=== PATIENT | male | born 1960 | race African-American/Black ===

== ENCOUNTER 2019-08-01 22:08 | Emergency (ER) | payer OTHER ==
[~2019-08-01] VITALS: Ht 180.3 cm; Wt 70.3 kg
--- NOTE | ~2019-08-01 | EMS ---
[facility] [address] [place] [address] EMS Patient Care Report Name: NINA PRTAT Room #: REG LIDIA Peraza#: [id number] Admission: 08/01/19 Attend Phys: Discharge: Date of : 60 Report #: [id number] THIS REPORT FOR: //name// Report Transmitted: 08/01/2019 22:08 EMS Care Summary [place], [place]/[facility] Incident [id number] @ 08/01/2019 21:41 Incident Location [address] [place] [address] 505 B Patient NINA PRATT Male, 59 Years 1960 Patient Address [address] [place] [address] [address] [place] [address] Patient History Congestive Heart Failure (CHF),Hypertension (HTN),Stroke/CVA,Dialysis, Patient Allergies Penicillin allergy, Patient Medications Heparin, Hydralazine, Carvedilol, Furosemide, Atorvastatin, Amlodipine, Chief Complaint Right elbow pain/swelling Disposition Transported No Lights/[place] Dispatch Reason Sick Person Transported To [facility] Narrative 59 y/o male with pain/swelling to right elbow. On arrival found pt in IN room. Pt stated he has been having pain and swelling [address] [address] EMS Patient Care Report Name: NINA PRATT Room #: REG Karmen#: [id number] Admission: 08/01/19 Attend Phys: Discharge: Date of : 60 Report #: [id number] to his right elbow and wanted to be taken to the hospital. EMS monitored pt/VS en route to [facility] ED. Transferred care of pt to [facility] ED RN without incident. Initial Vitals @21:59P: 70,BP: 168/99,CO: 7,SpO2: 97, @21:54P: 75,R: 20,BP: 175/101,Pain: 8/10,GCS: 15,CO: 5,SpO2: 97,Revised Trauma: 12, Assessments @21:50MENTAL:No Abnormalities,SKIN:No Abnormalities,HEENT:Head/Face: No Abnormalities,Eyes: No Abnormalities,Neck/Airway: No Abnormalities,LUNG SOUNDS:General: No Abnormalities,Left Upper: No Abnormalities,Right Upper: No Abnormalities,Left Lower: No Abnormalities,Right Lower: No Abnormalities,ABDOMEN:General: No Abnormalities,Left Upper: No Abnormalities,Right Upper: No Abnormalities,Left Lower: No Abnormalities,Right Lower: No Abnormalities,PELVIS//GI:No Abnormalities,EXTREMITIES:Right Arm: Other,Capillary Refill: Left Upper: < 2 Sec,Left Arm: No Abnormalities,Left Leg: No Abnormalities,Right Leg: No Abnormalities,PULSE:Radial: 2+ Normal,NEURO:No Abnormalities, Impression Extremity Pain Procedures @21:50ALS AssessmentResponse: UnchangedSucceeded Timeline 21:39,Call Received 21:39,Dispatch Notified 21:41,Dispatched 21:41,En Route 21:47,On Scene 21:50,At Patient 21:50,ALS Assessment,Response: UnchangedSucceeded, 21:54,BP: 175/101 M,PULSE: 75,RR: 20 R,SPO2: 97 Ox,ETCO2: ,BG: ,PAIN: 8,GCS: 15, 21:55,Depart Scene 21:59,BP: 168/99 M,PULSE: 70,RR: R,SPO2: 97 Ox,ETCO2: ,BG: ,PAIN: ,GCS: , 22:12,At Destination 22:28,Call Closed Disclaimer v1.1 Copyright 2020 [employer] This EMS Care Summary contains data elements from the applicable legal record [address] [address] EMS Patient Care Report Name: NINA PRATT Room #: REG Karmen#: [id number] Admission: 08/01/19 Attend Phys: Discharge: Date of : 60 Report #: [id number] (which may be displayed differently). It is designed to provide pertinent information for the following purposes: continuity of care, clinical quality, and state data reporting. The complete legal record is available to ED staff and administrators of the receiving hospital in [employer]'s Patient Tracker. All data is provided "as is."
[2019-08-01 23:32] VITALS: BP 155/100
== END 2019-08-01 23:39 | disposition home or self-care (01) ==
LOC: ER 22:08
DX: M70.21 Olecranon bursitis, right elbow (principal); Z88.0 Allergy status to penicillin

== ENCOUNTER 2020-12-15 09:16 | Emergency (ER) | payer OTHER ==
[~2020-12-15] VITALS: Ht 185.4 cm; Wt 81.7 kg
--- NOTE | ~2020-12-15 | EMS ---
[address] [address] EMS Patient Care Report Name: NINA PRATT Room #: REG LIDIA Peraza#: [id number] Admission: 12/15/20 Attend Phys: Discharge: Date of : 60 Report #: [id number] THIS REPORT FOR: //name// Report Transmitted: 12/15/2020 12:01 EMS Care Summary [place], [place]/[facility] Incident [id number] @ 12/15/2020 08:46 Incident Location [address] [place] [address] 507 Patient NINA PRATT Male, 60 Years 1960 Patient Address [address] [place] [address] Patient History Cardiac Arrest,Chronic Obstructive Pulmonary Disease (COPD),Dementia,Hypertension (HTN),Smoking,Stroke/CVA,Hyperlipidemia,Gastro-Esophageal Reflux Disease (GERD),Pneumonia,Depression,Dialysis,Hyperkalemia,Chronic Kidney Disease,Myocardial Infarction (AR), Patient Allergies Penicillin allergy, Patient Medications Carvedilol, Doxycycline, Hydralazine, Atorvastatin, Sertraline, Levetiracetam, Hydrocodone, Midodrine, None Reported, Pantoprazole, Chief Complaint Missed dialysis appointment Disposition Transported No Lights/[place] Dispatch Reason Chest Pain (Non-Traumatic) Transported To [address] [address] EMS Patient Care Report Name: NINA PRATT Room #: REG [facility]#: [id number] Admission: 12/15/20 Attend Phys: Discharge: Date of : 60 Report #: [id number] Narrative Arrived to meet P28 on scene with the patient. Patient's niece was on scene as well and stated that EMS had been called because the patient had not received his dialysis in approximately 6 days. Patient stated he had the [facility] staff call because of chest pain. Patient had recently been evaluated for chest pain that was found by the hospital he was evaluated at to be related to the cardiac arrest. No fci staff was present to the time of patient contact to give any form of report on the patient's current condition. Patient had a bandage on his right forearm from an injury at some unknown time. Patient described his chest pain as centrally located, and painful to palpation. Patient denied the pain was radiating. Patient denied any soa, n/v, or diarrhea. Patient on 3lpm O2 via NC baseline. Vital signs, 3 and 12 lead EKGs obtained. Patient transported and transferred to receiving facility without change in patient condition. Initial Vitals @09:01P: 74,SpO2: 81, @09:04P: 76,CO: 19,SpO2: 96,AR Suspected: false @09:02P: 69,R: 16,BP: 157/100,Pain: 6/10,GCS: 14,SpO2: 88,Revised Trauma: 12, @09:00P: 72,R: 16,BP: 151/89,Pain: 6/10,GCS: 14,Glucose: 84,SpO2: 84,Revised Trauma: 12, Assessments @08:55MENTAL:Confused,Person Oriented,Place Oriented,SKIN:HEENT:Head/Face: No Abnormalities,Neck/Airway: No Abnormalities,LUNG SOUNDS:ABDOMEN:PELVIS//GI:No Abnormalities,EXTREMITIES:Right Arm: Other,Left Arm: No Abnormalities,Left Leg: No Abnormalities,Right Leg: No Abnormalities,PULSE:NEURO:No Abnormalities, Impression Chest Pain, Other (Non-Cardiac) Procedures @09:0412-Lead ECGResponse: UnchangedSucceeded@08:55ALS AssessmentResponse: UnchangedSucceeded@09:033-Lead ECGResponse: UnchangedSucceeded@08:57Oxygen FlowRate: 3 Device: Nasal Cannula (NC) Response: UnchangedSucceeded Timeline 08:44,Call Received 08:44,Dispatch Notified 08:46,Dispatched 08:47,En Route 08:53,On Scene 08:55,At Patient 08:55,ALS Assessment,Response: UnchangedSucceeded, 08:57,Oxygen FlowRate: 3 Device: Nasal Cannula (NC) Response: [facility] [address] [place] [address] EMS Patient Care Report Name: NINA PRATT Room #: JOSE Peraza#: [id number] Admission: 12/15/20 Attend Phys: Discharge: Date of : 60 Report #: [id number] [facility],BP: 151/89 M,PULSE: 72,RR: 16 R,SPO2: 84 Ox,ETCO2: ,B,PAIN: 6,GCS: 14, 09:01,BP: / M,PULSE: 74,RR: R,SPO2: 81 Ox,ETCO2: ,BG: ,PAIN: ,GCS: , 09:02,BP: 157/100 M,PULSE: 69,RR: 16 R,SPO2: 88 Ox,ETCO2: ,BG: ,PAIN: 6,GCS: 14, 09:03,3-Lead ECG,Response: UnchangedSucceeded, 09:04,12-Lead ECG,Response: UnchangedSucceeded, 09:04,BP: / M,PULSE: 76,RR: R,SPO2: 96 Ox,ETCO2: ,BG: ,PAIN: ,GCS: , 09:05,Depart Scene 09:14,At Destination 09:24,Call Closed Disclaimer v1.1 Copyright 2020 [employer] This EMS Care Summary contains data elements from the applicable legal record (which may be displayed differently). It is designed to provide pertinent information for the following purposes: continuity of care, clinical quality, and state data reporting. The complete legal record is available to ED staff and administrators of the receiving hospital in [employer]'s Patient Tracker. All data is provided "as is."
[2020-12-15 09:53] LABS: CALCIUM 8.4 mg/dL (8.5-10.1); CREATININE 9.8 mg/dL (0.7-1.3); POTASSIUM 5.7 mmol/L (3.5-5.1)
[2020-12-15 10:13] LABS: HEMOGLOBIN 6.6 gm/dL (14.0-18.0); RDW 15.6 % (10.5-14.5)
[2020-12-15 10:15] LABS: ABSOLUTE NEUTROPHILS 6.5 thou/uL (1.4-8.2); BASOPHILS 0.6 % (0.0-2.0); EOSINOPHILS 0.9 % (0.0-3.0); HEMATOCRIT 20.7 % (42.0-52.0); LYMPHOCYTES 7.8 % (24.0-44.0); MCH 28.6 pg (26.0-34.0); MCV 89.6 fL (80.0-100.0); MONOCYTES 7.7 % (1.0-8.0); PLATELET COUNT 179 thou/uL (150-400); RBC 2.31 mil/uL (4.50-6.00); WBC 7.9 thou/uL (4.0-11.0)
--- NOTE | 2020-12-15 12:10 | NUR ---
Pt is was brought to the ER d/t kathe and not able to get dialysis at [facility] as he is missing a 30 day lab draw for hep B panel. Repair Service Dispatcher spoke with Edilma at [facility] and she notes the retirement was suppose to have drawn it yesterday as she was not able to treat him on Sunday. They did not have it drawn. ER staff notified and requested lab be drawn prior to dc back to the retirement after dialysis here. Cm to fax resulted lab work so [facility] can get him on the schedule. and phone [phone]. Flow sheets from todays treatment will need to be sent with the pt as well.
[2020-12-15] MEDS ORDERED: KEFLEX250 MG PO (12:54)
--- NOTE | 2020-12-15 13:39 | EKG ---
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: : 1960 Requested By: Jama Denson Order Number: [id number] MD: Marlon Bardales Measurements Intervals [place] Rate: 72 P: 41 MS: 114 QRS: 43 QRSD: 99 T: 106 QT: 408 QTc: 447 Interpretive Statements Sinus rhythm Borderline short MS interval Borderline repolarization abnormality Baseline wander in lead(s) V5 No previous ECG available for comparison Electronically Signed On 12-15-2020 13:39:14 CDT by Marlon Bardales [email or web address] <ELECTRONICALLY SIGNED> By: Marlon Bardales MD, [facility] 12/15/20 1339 0917 6 Marlon Bardales MD, [facility] /EPI
[2020-12-15 16:23] VITALS: BP 157/98
== END 2020-12-15 16:24 ==
LOC: ER 09:16
PROVIDERS: Emergency Medicine
DX: N19 Unspecified kidney failure (principal); Z20.822 Contact with and (suspected) exposure to COVID-19; R07.89 Other chest pain; D64.9 Anemia, unspecified; Z88.0 Allergy status to penicillin

== ENCOUNTER → 2020-12-17 | Emergency (ER) | payer OTHER ==
[~2020-12-17] MED LIST: KEFLEX250 MG PO
[2020-12-17 17:23] LABS: BASOPHILS 1.3 % (0.0-2.0); EOSINOPHILS 0.6 % (0.0-3.0); HEMATOCRIT 21.1 % (42.0-52.0); LYMPHOCYTES 8.6 % (24.0-44.0); MCH 29.5 pg (26.0-34.0); MCHC 33.3 g/dL (28.0-37.0); MCV 88.4 fL (80.0-100.0); MONOCYTES 6.8 % (1.0-8.0); PLATELET COUNT 236 thou/uL (150-400); POLYS 82.7 % (36.0-66.0); RBC 2.39 mil/uL (4.50-6.00); WBC 8.4 thou/uL (4.0-11.0)
== END ==
LOC: ER 17:05
PROVIDERS: Physician Assistant
DX: R06.02 Shortness of breath (principal); Z53.21 Procedure and treatment not carried out due to patient leaving prior to being seen by health care provider; Z88.0 Allergy status to penicillin

== ENCOUNTER 2021-02-02 00:02 | Inpatient (IN) | payer OTHER ==
[~2021-02-02] VITALS: Ht 180.3 cm; Wt 77.6 kg
--- NOTE | ~2021-02-02 | EMS ---
[facility] [address] [place] [address] EMS Patient Care Report Name: NINA PRATT Room #: 455-P [facility] IN M.R.#: [id number] Admission: 02/02/21 Attend Phys: Chace Sandoval MD Discharge: 02/04/21 Date of : 60 Report #: [id number] THIS REPORT FOR: //name// Report Transmitted: 02/07/2021 15:09 EMS Care Summary [place], [place]/[facility] Incident [id number] @ 02/01/2021 23:28 Incident Location [address] [place] [address] Patient NINA PRATT Male, 60 Years 1960 Patient Address [address] [place] [address] Patient History Cardiac Arrest,Congestive Heart Failure (CHF),Chronic Obstructive Pulmonary Disease (COPD),Dementia,Hypertension (HTN),Smoking,Stroke/CVA,Hyperlipidemia,Gastro-Esophageal Reflux Disease (GERD),Pneumonia,Depression,Dialysis,Hyperkalemia,Chronic Kidney Disease,Myocardial Infarction (MA), Patient Allergies Penicillin allergy, Patient Medications Acetaminophen, Finasteride, Atorvastatin, Keflex, Carvedilol, Sertraline, Doxycycline, Gabapentin, Amlodipine, Levetiracetam, Hydrocodone, Pantoprazole, Midodrine, Keppra, Hydralazine, [place], Clopidogrel, Chief Complaint SOB Disposition Transported No Lights/[place] Dispatch Reason Breathing Problem Transported To [facility] [address] [place] [address] EMS Patient Care Report Name: NINA PRATT Room #: 455-P DIS IN M.R.#: [id number] Admission: 02/02/21 Attend Phys: Chace Sandoval MD Discharge: 02/04/21 Date of : 60 Report #: [id number] [facility] Narrative pt found wheeling around the [place] in his wheelchair. he called 911 himself stating he has not felt well since yesterday morning, which is why he skipped dialysis. pt c/o pain to chest from hx of multiple cracked ribs. pt states it hurts to take a deep breath. pt is unhappy with the care he receives at [facility] and calls frequently for transport. he req eval at [facility] tonight.. pt to cot, / 3L per norm, VS transport w/o change. Initial Vitals @23:46P: 76,R: 20,BP: 198/92,Pain: 4/10,GCS: 15,SpO2: 97,Revised Trauma: 12, Assessments @23:36MENTAL:No Abnormalities,SKIN:No Abnormalities,HEENT:Head/Face: No Abnormalities,LUNG SOUNDS:ABDOMEN:PELVIS//GI:EXTREMITIES:Left Arm: Other,PULSE:NEURO:Other, Impression Shortness of breath Procedures @23:36 ALS Assessment Response: Unchanged @23:45 3-Lead ECG Response: Unchanged @23:41 Stretcher Response: Unchanged @23:48 Oxygen FlowRate: 3 Device: Nasal Cannula (NC) Response: Unchanged Timeline 23:26,Call Received 23:26,Dispatch Notified 23:28,Dispatched 23:29,En Route 23:32,On Scene 23:36,At Patient 23:36,ALS Assessment,Response: Unchanged 23:41,Stretcher,Response: Unchanged 23:45,3-Lead ECG,Response: Unchanged 23:46,BP: 198/92 M,PULSE: 76,RR: 20 R,SPO2: 97 Ox,ETCO2: ,BG: ,PAIN: 4,GCS: 15, 23:48,Depart Scene 23:48,Oxygen FlowRate: 3 Device: Nasal Cannula (NC) Response: Unchanged 00:04,At Destination 00:12,Call Closed Disclaimer v1.1 Copyright 2020 [employer] [address] [address] EMS Patient Care Report Name: NINA PRATT Shannan Room #: 455-P DIS IN [facility]#: [id number] Admission: 02/02/21 Attend Phys: Chace Sandoval MD Discharge: 02/04/21 Date of : 60 Report #: [id number] This EMS Care Summary contains data elements from the applicable legal record (which may be displayed differently). It is designed to provide pertinent information for the following purposes: continuity of care, clinical quality, and state data reporting. The complete legal record is available to ED staff and administrators of the receiving hospital in [facility]'s Patient Tracker. All data is provided "as is."
[~2021-02-02 00:02] MED LIST changes: +ALBUTEROL2.5 MG/31 INH; +BAYER CHEWABLE81 MG PO; +CALAMINE LOTIO177 M1 TOP; +CARVEDILOL25 MG PO; +CATAPRES-TTS 31 EAC1 TRANSDERM; +CEFUROXIME500 MG PO; +CHILDREN'S ASPI81 MG PO; +CHOLECALCIFEROL PO; +CLONIDINE HCL0.1 MG PO; +CLONIDINE HCL0.3 M3 PO; +CLONIDINE PATCH TRANSDERM; +CLOPIDOGREL75 MG PO; +COLACE100 MG PO; +DORYX MPC120 MG PO; +EC-NAPROSYN375 MG PO; +EPOGEN20000 UNI2; +FERROUS SULFATE PO; +FLOMAX0.4 MG PO; +FUROSEMIDE 40 M40 MG PO; +GAS RELIEF80 MG PO; +GLYCOLAX119 GM PO; +HYDRALAZINE 5050 MG PO; +KEPPRA 500 MG500 MG PO; +KEPPRA XR500 MG PO; +LEVOFLOXACIN250 MG PO; +LEVOFLOXACIN500 MG PO; +LIPITOR40 MG PO; +LIPITOR80 MG PO; +LISINOPRIL5 MG PO; +LOPERAMIDE2 MG PO; +MUCINEX600 MG PO; +NEPHRO-VITE RX1 TA1 PO; +NEURONTIN100 MG PO; +NORVASC 2.5 MG2.5 M1 PO; +NORVASC5 MG PO; +PERCOCET 5-3251 EACH PO; +PROSCAR 5MG TABL5 M1 PO; +PROTONIX40 M2 PO; +RENVELA800 MG PO; +SERTRALINE HCL100 MG PO; +TRAMADOL 50 MG50 MG PO; +TUMS PO; +TYLENOL PO; +TYLENOL325 M1 PO; +ULTRAM 50MG TAB50 MG PO; +VOLTAREN100 GM TOP; +ZITHROMAX500 MG PO; +ZOFRAN 4 MG ORAL4 MG PO; +ZOFRAN4 MG PO; +ZOLOFT50 M1 PO; +[UNRECOGNIZED DRUG - OTHER] TOP
[2021-02-02 00:25] VITALS: BP 161/110
[2021-02-02 01:30] LABS: ABSOLUTE NEUTROPHILS 6.3 thou/uL (1.4-8.2); BASOPHILS 1.3 % (0.0-2.0); HEMATOCRIT 27.2 % (42.0-52.0); HEMOGLOBIN 8.4 gm/dL (14.0-18.0); LYMPHOCYTES 14.3 % (24.0-44.0); MCH 28.7 pg (26.0-34.0); MCHC 30.9 g/dL (28.0-37.0); MCV 93.1 fL (80.0-100.0); MONOCYTES 9.5 % (1.0-8.0); PLATELET COUNT 145 thou/uL (150-400); POLYS 72.9 % (36.0-66.0); RBC 2.92 mil/uL (4.50-6.00); RDW 19.1 % (10.5-14.5); WBC 8.7 thou/uL (4.0-11.0)
[2021-02-02 01:33] LABS: CALCIUM 8.9 mg/dL (8.5-10.1); CREATININE 7.2 mg/dL (0.7-1.3); POTASSIUM 5.3 mmol/L (3.5-5.1)
[2021-02-02 01:42] LABS: ALBUMIN 2.5 g/dL (3.4-5.0); TOTAL BILIRUBIN 0.4 mg/dL (0.2-1.0); TOTAL PROTEIN 7.2 g/dL (6.4-8.2)
--- NOTE | 2021-02-02 04:46 | NUR ---
LUNCH BOX AND APPLE JUICE PROVIDED TO PT.
[2021-02-02 06:13] VITALS: BP 178/112
[2021-02-02 06:31] VITALS: BP 178/112
[2021-02-02 07:00] VITALS: BP 139/99
--- NOTE | 2021-02-02 08:53 | NUR ---
PT UP AND DOWN IN ROOM. PT GAIT IS NOT STEADY, PT USES [facility] TO AMBULATE AND BED. PT HAS NUMBEROUS DEMANDS THIS AM. PT WANTING BED MADE DUE TO IJ CAME OUT OF NECK AND BLOOD WAS ON HIS SHEETS. PT COMPLAINING OF FEELING COLD AND ALSO NAUSEATED. PT WANTING WATER TO DRINK, NO DIET IS ORDERED. CALLED DR. ANDREA TO GET PO FORM OF ZOFRAN AND ALSO TO ORDER A DIET. PT HAS GRAFT FOR DIALYSIS TO LEFT ARM. PT STATED HE GETS DIALYSIS HERE. PT HAS COBAN AROUND WAIST DUE TO HE HAS RIB PAIN. PT TOOK MEDS WITH WATER. PT DENIES ANY PAIN. PT ASKING ALSO FOR A URINAL THIS AM.
[2021-02-02 11:00] VITALS: BP 154/111
--- NOTE | 2021-02-02 11:07 | NUR ---
PT WAS SITTING UP IN THE CHAIR IN ROOM. ENFORMED PT THAT DIALYSIS NURSE WILL BE IN AROUND NOON. PT STATED OK.
--- NOTE | 2021-02-02 11:24 | 2DMMODE ---
[facility] [place] [address] 2 D/M-MODE ECHOCARDIOGRAM Name: NINA PRATT Room #: 455-P ADM IN .R.#: [id number] Admission: 02/02/21 Attend Phys: Chace Sandoval MD Discharge: Date of : 60 Report #: [id number] THIS REPORT FOR: cc: Gerardo Orozco MD, Srinath MD Santiago, Patrick MD [facility] ~ ADDENDUM APPROVED REPORT Study performed: 02/02/2021 10:16:10 EXAM: Comprehensive 2D, Doppler, and color-flow Echocardiogram Patient Location: In-Patient Room #: 455 Status: routine BSA: 1.96 HR: 69 bpm BP: 178/112 mmHg Rhythm: NSR Other Information Study Quality: Good Risk Factors: Cardiac Risk Factors: HTN, Hyperlipidemia, DM Indications CAD 2D Dimensions RVDd: 47.15 mm IVSd: 16.22 (7-11mm) LVOT Diam: 25.36 (18-24mm) LVDd: 49.33 mm PWd: 12.27 (7-11mm) LVDs: 31.49 (25-40mm) Left Atrium: 44.62 (27-40mm) Aortic Root: 38.50 mm LV Single Plane 4CH: 72.37 % Tricuspid Valve TR Peak Prashant.: 3.65 m/s TR Peak Gr.: 53.32 mmHg Left Ventricle The left ventricle is normal size. There is normal LV segmental wall [facility] [address] [place] [address] 2 D/M-MODE ECHOCARDIOGRAM Name: NINA PRATT Room #: 455-P ADM IN ..#: [id number] Admission: 02/02/21 Attend Phys: Chace Sandoval, Discharge: Date of : 60 Report #: [id number] motion. Moderate concentric left ventricular hypertrophy. The left ventricular systolic function is normal. The left ventricular ejection fraction is within the normal range. LVEF is 60%. Grade I - abnormal relaxation pattern. Right Ventricle The right ventricle is normal size. There is normal right ventricular wall thickness. The right ventricular systolic function is normal. Atria Left atrium is mildly dilated. Right atrium is moderately to severely dilated. Aortic Valve The Aortic valve is sclerotic but has adequate excursion. There is no aortic valvular stenosis. Mitral Valve Mitral annular calcification anteriorly. No evidence of mitral valve stenosis. Tricuspid Valve The tricuspid valve is normal in structure. There is no tricuspid valve stenosis. Mild to moderate tricuspid regurgitation. Estimated PAP 65-70 Pulmonic Valve The pulmonary valve is normal in structure. Great Vessels There is mild aortic root dilation. The inferior vena cava is dilated with a decrease in inspiratory collapse. Pericardium There is no pericardial effusion. Critical Notification Critical Value: No <Conclusion> Normal left ventricle size with moderate concentric hypertrophy Ejection fraction 60% Grade 1 diastolic dysfunction Normal right ventricle size/function [facility] [address] [place] [address] 2 D/M-MODE ECHOCARDIOGRAM Name: NINA PRATT Room #: 455-P ADM IN M.R.#: [id number] Admission: 02/02/21 Attend Phys: Chace Sandoval, Discharge: Date of : 60 Report #: [id number] Left atrium mildly dilated Aortic valve mildly sclerotic without stenosis Mild mitral annular calcification Mild to moderate tricuspid valve insufficiency Severe pulmonary hypertension PA pressure estimated 65-70 mmHg No pericardial effusion Normal aortic root size <ELECTRONICALLY SIGNED> By: Marlon Bardales MD, FACC 02/02/21 1124 23 23 Marlon Bardales MD, FACC /INF
--- NOTE | 2021-02-02 12:00 | NUR ---
DIALYSIS NURSE HERE TO START. STATED TO PT THAT HE IS GETTING 4 HRS TODAY, PT UPSET AND STATED HE USUALLY GETS 3 HRS. DUE TO HOLIDAY PT WILL NEED 4 HR RUN. PT WANTING TO EAT LUNCH FIRST.
--- NOTE | 2021-02-02 13:16 | NUR ---
PT GETTING PLAVIX AT THIS TIME AND GETTING DIALYSIS. PT HAS PERIODS OF SLEEPING. PT APPEARS COMFORTABLE.
--- NOTE | 2021-02-02 13:41 | EKG ---
[place] [address] [email or web address] [place] [address] ELECTROCARDIOGRAM REPORT Name: TERENCENINA Campbell Room #: 455-P ADM IN M.R.#: [id number] Admission: 02/02/21 Attend Phys: Chace Sandoval MD Discharge: Date of : 60 Report #: [id number] [facility] Test Date: 2021-02-02 Test Time: 07:59:31 Pat Name: NINA PRATT Department: Room: 455 P Gender: M Superintendent Maintenance: BELL : 1960 Requested By: Maxine Mack Order Number: [id number] MD: Marlon Bardales Measurements Intervals [place] Rate: 66 P: 146 [place]: 154 QRS: 149 QRSD: 101 T: -31 QT: 424 QTc: 445 Interpretive Statements Right and left arm electrode reversal, interpretation assumes no reversal Sinus or ectopic atrial rhythm Lead(s) II were not used for morphology analysis Compared to ECG 12/17/2020 17:23:11 Ectopic atrial rhythm now present Possible ischemia now present Sinus rhythm no longer present Electronically Signed On 02-02-2021 13:41:42 IGNITION MECHANIC by Marlon Bardales [email or web address] <ELECTRONICALLY SIGNED> By: Marlon Bardales MD, FACC 02/02/21 1341 0759 0759 Marlon Bardales MD, [facility] /EPI
--- NOTE | 2021-02-02 13:41 | EKG ---
[address] [place] [address] ELECTROCARDIOGRAM REPORT Name: TERENCENINA Campbell Room #: 455-P ADM IN M.R.#: [id number] Admission: 02/02/21 Attend Phys: Chace Sandoval MD Discharge: Date of : 60 Report #: [id number] [facility] ED Test Date: 2021-02-02 Test Time: 01:32:20 Pat Name: NINA PRATT Department: Room: [facility] Gender: M Insulator Tester: : 1960 Requested By: Kevin Ricci Order Number: [id number] MD: Marlon Bardales Measurements Intervals [place] Rate: 70 P: 89 MA: 137 QRS: 63 QRSD: 75 T: 204 QT: 396 QTc: 428 Interpretive Statements Sinus rhythm Probable left atrial enlargement Nonspecific T abnormalities, lateral leads Compared to ECG 12/17/2020 17:23:11 T-wave abnormality now present Electronically Signed On 02-02-2021 13:41:04 [employer] by Marlon Bardaels [email or web address] <ELECTRONICALLY SIGNED> By: Marlon Bardales MD, [facility] 02/02/21 1341 0132 013 Marlon Bardales MD, FACC /EPI
--- NOTE | 2021-02-02 15:21 | NUR ---
CALLED DR. DELACRUZ OFFICE DUE TO ELEVATED TROPONIN LEVEL. THEY WILL PAGE THE
--- NOTE | 2021-02-02 15:30 | NUR ---
DR. DAS CALLED FOR PT AND STATED HE WAS NOT GOING TO DO ANYTHING AGGRESSIVE AT THIS TIME. PT TROP HIGH SENSITIVITY WAS ELEVATED ALSO 0050 THIS AM.
--- NOTE | 2021-02-02 16:06 | NUR ---
PT ADMITTED RELATED TO MISSED DIALYSIS. CM REVIEWED CHART AND SPOKE WITH CARE TEAM. CM ATTEMTPED TO VISIT WITH PT THIS DAY BUT HE WAS ONM DIALYSIS AND SLEEPING. CM CALLED [facility] WHERE PT DOES DIALYSIS AND THEY INDICATED THAT PT IS MWF 11:30 CHAIR TIME AND HAD DIALYSIS THIS PAST SUNDAY AND HAD FINISHED HI FULL RUN. CM NOTIFIED CARE TEAM OF THIS. CM ATTEMPTED PC TO [facility] AND [facility] IN ADMISSIONS AND DIANE PEGUERO HAD LEFT FOR THE DAY. DARRICK CALLED PT'S SISTER ANNE MARIE AND SHE CONFIRMED THAT PT RESIDES AT [facility] AND THAT HE IS MWF 11:30 CHAIR TIME AND STATED THAT PT IS CONFUSED AND GETTING HIS DAYS AND WHAT'S HAPPENING TO HIM MIXED UP. SHE INDICATED PLAN IS FOR TO TO RETURN TO [facility] ONCE MEDICALLY STABLE. CONTACT LADAN AT TO FACILITATE PT'S RETURN FAX ORDERS TO FACILITY AT AND TO [facility] AT .
--- NOTE | 2021-02-02 16:32 | NUR ---
PT ALMOST FINISHED WITH DIALYSIS AND WANTING TO GET SOME MILK. PT HAS FOUL LANGUAGE TO DIALYSIS NURSE WHEN SHE WAS ADJUSTING BP CUFF, HE STATED DON'T FUCKING TOUCH ME.
--- NOTE | 2021-02-02 18:01 | NUR ---
PT FINISHED WITH DIALYSIS AND SITTING ON SIDE OF BED. PT COMPLAINS OF PAIN TO HEAD, ADM TYLENOL 325MG 2 TABS PO FOR PAIN. PT GETTING READY TO EAT DINNER. PT LOOKING FOR HOUSE SHOES, FOUND UNDER THE BED.
[2021-02-02 19:48] VITALS: BP 147/87
[2021-02-03 06:29] LABS: CALCIUM 8.4 mg/dL (8.5-10.1)
[2021-02-03 06:46] LABS: CREATININE 4.7 mg/dL (0.7-1.3)
--- NOTE | 2021-02-03 07:24 | NUR ---
ASSSUMED CARE OF PT AT 1900. PT ASSESSED TO BE AOX2-3 HERE FOR DIALYSIS. PT RESTED IN ROOM THROUGHOUT THE NIGHT WITH NO COMPLAINTS, VSS. WILL LOOK FORWARD TO TRANSFER BACK TO FACILITY IN AM.
[2021-02-03 07:50] VITALS: BP 204/132
[2021-02-03 11:18] VITALS: BP 142/74
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
[2021-02-03 15:55] VITALS: BP 186/99
[2021-02-03 21:15] VITALS: BP 184/107
[2021-02-04 04:33] VITALS: BP 179/103
--- NOTE | 2021-02-04 05:45 | NUR ---
ASSUMED CARE OF PT AT 1900. PT CONTINUES TO BE AOX4 60M PRESENTING D/T MISSED DIALYSIS AND HTN. PT RESTED MOST OF THE NIGHT IN ROOM. PT BLOOD PRESSURE CONTINUES TO BE EXTREMELY ELEVATED, SCHEDULED ORAL HYDRALAZINE GIVEN BUT DID NOT EFFECTIVELY REDUCE BP. IN MORNING HOURS, PT COMPLAINED OF INCREASING RIB PAIN, TYLENOL GIVEN WITH LITTLE EFFECT. CALLED WASHER ENGINEER MARIANO WHO ORDERED 1X 50MG ULTRAM. ASSESSED PT FURTHER AND FOUND BELLY HAD BECOME INCREASINGLY DISTENDED AND FIRM, MAINLY RLQ. NOTIFIED HOUSE SUP AND WASHER ENGINEER. OBTAINED NEW R FOREARM IV FOR IV HYDRALAZINE AND WILL GET XRAY KUB IN AM PER WASHER ENGINEER. WILL CONTINUE TO MONITOR, PT RESTING IN ROOM NOW.
[2021-02-04 07:44] VITALS: BP 165/177
[2021-02-04] MEDS ORDERED: CEFDINIR300 MG PO (13:25)
--- NOTE | 2021-02-04 13:45 | NUR ---
PT REFUSED KUB THIS MORNING DR. ARTEAGA. NNO GIVEN.
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
[2021-02-04 16:59] VITALS: BP 149/89
== END 2021-02-04 17:19 | DRG 291 ==
LOC: ER 00:02 → EROBS 02:25 → 4W 02:25
PROVIDERS: Emergency Medicine; Nurse Practitioner Family; ADMIT Internal Medicine; ATTEND Internal Medicine
PROC: 5A1D70Z Performance of Urinary Filtration, Intermittent, Less than 6 Hours Per Day (ICD-10-PCS; principal; 2021-02-04)
DX: I13.2 Hypertensive heart and chronic kidney disease with heart failure and with stage 5 chronic kidney disease, or end stage renal disease (principal); J96.21 Acute and chronic respiratory failure with hypoxia; N18.6 End stage renal disease; I50.33 Acute on chronic diastolic (congestive) heart failure; I69.354 Hemiplegia and hemiparesis following cerebral infarction affecting left non-dominant side; E87.5 Hyperkalemia; R77.8 Other specified abnormalities of plasma proteins; D63.8 Anemia in other chronic diseases classified elsewhere; E87.70 Fluid overload, unspecified; Z20.822 Contact with and (suspected) exposure to COVID-19; E78.5 Hyperlipidemia, unspecified; J44.9 Chronic obstructive pulmonary disease, unspecified; I25.10 Atherosclerotic heart disease of native coronary artery without angina pectoris; F32.9 Major depressive disorder, single episode, unspecified; K21.9 Gastro-esophageal reflux disease without esophagitis; N40.0 Benign prostatic hyperplasia without lower urinary tract symptoms; I16.0 Hypertensive urgency; G40.909 Epilepsy, unspecified, not intractable, without status epilepticus; Z99.2 Dependence on renal dialysis; I25.2 Old myocardial infarction; Z88.0 Allergy status to penicillin; Z86.718 Personal history of other venous thrombosis and embolism; Z71.6 Tobacco abuse counseling; Z91.14 Patient's other noncompliance with medication regimen; Z91.15 Patient's noncompliance with renal dialysis
CPT/HCPCS: 10045; 32100

== ENCOUNTER 2021-02-08 01:51 | Emergency (ER) | payer OTHER ==
[~2021-02-08] VITALS: Ht 180.3 cm; Wt 77.6 kg
--- NOTE | ~2021-02-08 | EMS ---
[place] [address] EMS Patient Care Report Name: NINA PRATT Room #: REG LIDIA Peraza#: [id number] Admission: 02/08/21 Attend Phys: Discharge: Date of : 60 Report #: [id number] THIS REPORT FOR: //name// Report Transmitted: 02/08/2021 02:35 EMS Care Summary [place], [place] Incident [id number] @ 02/08/2021 01:20 Incident Location [address] [place], [place] [address] Patient NINA PRATT Male, 60 Years 1960 Patient Address [address] [place] [address] Patient History Cardiac Arrest,Congestive Heart Failure (CHF),Chronic Obstructive Pulmonary Disease (COPD),Dementia,Hypertension (HTN),Smoking,Stroke/CVA,Hyperlipidemia,Gastro-Esophageal Reflux Disease (GERD),Pneumonia,Depression,Dialysis,Hyperkalemia,Chronic Kidney Disease,Myocardial Infarction ([place]), Patient Allergies Penicillin allergy, Patient Medications Levetiracetam, Amlodipine, Carvedilol, Hydralazine, Sertraline, Acetaminophen, Atorvastatin, Midodrine, Hydrocodone, Pantoprazole, Finasteride, Keflex, Gabapentin, Keppra, [place], Doxycycline, Clopidogrel, Chief Complaint non cardiac CP Disposition Transported No Lights/[place] Dispatch Reason Chest Pain (Non-Traumatic) [place] [address] EMS Patient Care Report Name: NINA PRATT Room #: REG [facility].#: [id number] Admission: 02/08/21 Attend Phys: Discharge: Date of : 60 Report #: [id number] [facility] Narrative pt has chronic pain from fx ribs he got as a med resuscitation at the hospital several weeks ago. pt called for CP/ribcage pain tonight. he is found lying in bed NAD. he got pain meds an hr ago but he states they have not helped and he wound like to go to [facility] "because last time I went, they gave my oxy and tylenol and that really helped". pt to cot, VS, /. pt states he is supposed to be on 3L but always takes it off at NH. 02 sat improved w/ admin. transport to pt [facility], [facility] w/o incident. report to staff rm 4 Initial Vitals @01:37SpO2: 98, @01:35P: 67,R: 20,BP: 204/111,Pain: 4/10,GCS: 15,SpO2: 91,Revised Trauma: 12, Assessments @:27MENTAL:No Abnormalities,SKIN:No Abnormalities,HEENT:Head/Face: No Abnormalities,LUNG SOUNDS:ABDOMEN:PELVIS//GI:EXTREMITIES:Left Arm: Other,PULSE:NEURO:No Abnormalities, Impression Chest Pain, Other (Non-Cardiac) Procedures @01:27 ALS Assessment Response: Unchanged @01:30 Stretcher Response: Unchanged @01:34 3-Lead ECG Response: Unchanged @01:35 Oxygen FlowRate: 3 Device: Nasal Cannula (NC) Response: Improved Timeline 01:18,Call Received 01:18,Dispatch Notified 01:20,Dispatched 01:23,En Route 01:26,On Scene 01:27,At Patient 01:27,ALS Assessment,Response: Unchanged 01:30,Stretcher,Response: Unchanged 01:34,3-Lead ECG,Response: Unchanged 01:35,Oxygen FlowRate: 3 Device: Nasal Cannula (NC) Response: Improved 01:35,BP: 204/111 M,PULSE: 67,RR: 20 R,SPO2: 91 Ox,ETCO2: ,BG: ,PAIN: 4,GCS: 15, 01:36,Depart Scene 01:37,BP: / M,PULSE: ,RR: R,SPO2: 98 Ox,ETCO2: ,BG: ,PAIN: ,GCS: , 01:46,At Destination [facility] [address] [place] [address] EMS Patient Care Report Name: NINA PRATT Shannan Room #: REG Karmen#: [id number] Admission: 02/08/21 Attend Phys: Discharge: Date of : 60 Report #: [id number] 02:01,Call Closed Disclaimer v1.1 Copyright 2020 [employer] This EMS Care Summary contains data elements from the applicable legal record (which may be displayed differently). It is designed to provide pertinent information for the following purposes: continuity of care, clinical quality, and state data reporting. The complete legal record is available to ED staff and administrators of the receiving hospital in ES's Patient Tracker. All data is provided "as is."
[~2021-02-08 01:51] MED LIST changes: +CEFDINIR300 MG PO
[2021-02-08 02:24] LABS: ABSOLUTE NEUTROPHILS 5.5 thou/uL (1.4-8.2); BASOPHILS 1.1 % (0.0-2.0); HEMATOCRIT 29.4 % (42.0-52.0); MCH 28.7 pg (26.0-34.0); MCHC 30.7 g/dL (28.0-37.0); MCV 93.3 fL (80.0-100.0); MONOCYTES 8.4 % (1.0-8.0); PLATELET COUNT 125 thou/uL (150-400); POLYS 73.5 % (36.0-66.0); RBC 3.15 mil/uL (4.50-6.00); RDW 18.2 % (10.5-14.5); WBC 7.5 thou/uL (4.0-11.0)
[2021-02-08 03:01] LABS: CALCIUM 8.6 mg/dL (8.5-10.1); CREATININE 7.4 mg/dL (0.7-1.3); POTASSIUM 5.6 mmol/L (3.5-5.1)
[2021-02-08 03:13] LABS: ALBUMIN 2.7 g/dL (3.4-5.0); TOTAL BILIRUBIN 0.3 mg/dL (0.2-1.0)
[2021-02-08 04:28] VITALS: BP 190/115
--- NOTE | 2021-02-08 07:18 | EKG ---
[place] [address] 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 : 1960 Requested By: Kevin Ricci Order Number: [id number] MD: Marlon Bardales Measurements Intervals [place] Rate: 66 P: 46 NC: 139 QRS: 69 QRSD: 72 T: QT: 433 QTc: 454 Interpretive Statements Sinus rhythm Nonspecific T abnormalities, lateral leads Compared to ECG 02/02/2021 07:59:31 T-wave abnormality now present Ectopic atrial rhythm no longer present Electronically Signed On 02-08-2021 7:18:05 ESTIMATING ENGINEER by Marlon Bardales [email or web address] <ELECTRONICALLY SIGNED> By: Marlon Bardales MD, [facility] 02/08/21717 0217 6 Marlon Bardales MD, FACC /EPI
== END 2021-02-08 05:15 | disposition home or self-care (01) ==
LOC: ER 01:51
PROVIDERS: Emergency Medicine
DX: R07.89 Other chest pain (principal); I12.0 Hypertensive chronic kidney disease with stage 5 chronic kidney disease or end stage renal disease; E11.22 Type 2 diabetes mellitus with diabetic chronic kidney disease; N18.6 End stage renal disease; Z99.2 Dependence on renal dialysis; E78.5 Hyperlipidemia, unspecified; J44.9 Chronic obstructive pulmonary disease, unspecified; I25.10 Atherosclerotic heart disease of native coronary artery without angina pectoris; F32.9 Major depressive disorder, single episode, unspecified; K21.9 Gastro-esophageal reflux disease without esophagitis; F19.20 Other psychoactive substance dependence, uncomplicated; F17.210 Nicotine dependence, cigarettes, uncomplicated; Z98.890 Other specified postprocedural states; Z86.73 Personal history of transient ischemic attack (TIA), and cerebral infarction without residual deficits; Z79.891 Long term (current) use of opiate analgesic; Z79.1 Long term (current) use of non-steroidal anti-inflammatories (NSAID); Z79.899 Other long term (current) drug therapy; Z88.0 Allergy status to penicillin

== ENCOUNTER 2021-02-16 22:30 | Emergency (ER) | payer OTHER ==
[~2021-02-16] VITALS: Ht 180.3 cm; Wt 77.6 kg
--- NOTE | ~2021-02-16 | EMS ---
[address] [address] EMS Patient Care Report Name: NINA PRATT Room #: REG LIDIA Peraza#: [id number] Admission: 02/16/21 Attend Phys: Discharge: Date of : 60 Report #: [id number] THIS REPORT FOR: //name// Report Transmitted: 02/16/2021 22:11 EMS Care Summary [place], [place]/[facility] Incident [id number] @ 02/16/2021 22:09 Incident Location [address] [place] [address] Patient NINA PRATT Male, 60 Years 1960 Patient Address [address] [place] [address] Patient History Cardiac Arrest,Congestive Heart Failure (CHF),Chronic Obstructive Pulmonary Disease (COPD),Dementia,Hypertension (HTN),Smoking,Stroke/CVA,Hyperlipidemia,Gastro-Esophageal Reflux Disease (GERD),Pneumonia,Depression,Dialysis,Hyperkalemia,Chronic Kidney Disease,Myocardial Infarction ([place]), Patient Allergies Penicillin allergy, Patient Medications Finasteride, Gabapentin, Pantoprazole, Clopidogrel, Acetaminophen, [place], Sertraline, Hydrocodone, Amlodipine, Carvedilol, Levetiracetam, Keflex, Doxycycline, Atorvastatin, Keppra, Midodrine, Hydralazine, Chief Complaint non cardiac CP Disposition Transported No Lights/[place] Dispatch Reason Breathing Problem Transported To [address] [address] EMS Patient Care Report Name: NINA PRATT Room #: REG [facility]#: [id number] Admission: 02/16/21 Attend Phys: Discharge: Date of : 60 Report #: [id number] [facility] Narrative pt found seated in wheelchair covered w/ blankets. he is a&o. he c/o chills and runny nose all day today. he also cont to c/o non cardiac CP from cracked ribs that happened several weeks ago. he has been transferred multiple times for pain control. pt denies missing any dialysis appts. pt to cot, transport w/o change. pt to triage, report to RN Initial Vitals @22:19R: 100,BP: 224/130,Pain: 6/10,GCS: 15,Temp: 98.2F,SpO2: 93,Revised Trauma: 11, Assessments @22:18MENTAL:No Abnormalities,SKIN:No Abnormalities,HEENT:Head/Face: Other,LUNG SOUNDS:ABDOMEN:PELVIS//GI:EXTREMITIES:Left Arm: Other,PULSE:NEURO:Other, Impression Chest Pain, Other (Non-Cardiac) Procedures @22:18 ALS Assessment Response: Unchanged @22:20 Stretcher Response: Unchanged Timeline 22:07,Call Received 22:07,Dispatch Notified 22:09,Dispatched 22:10,En Route 22:16,On Scene 22:18,At Patient 22:18,ALS Assessment,Response: Unchanged 22:19,BP: 224/130 M,PULSE: ,RR: 100 R,SPO2: 93 Ox,ETCO2: ,BG: ,PAIN: 6,GCS: 15, 22:20,Stretcher,Response: Unchanged 22:22,Depart Scene 22:28,At Destination 22:49,Call Closed Disclaimer v1.1 Copyright 2020 [employer] This EMS Care Summary contains data elements from the applicable legal record (which may be displayed differently). It is designed to provide pertinent information for the following purposes: continuity of care, clinical quality, and state data reporting. The complete legal record is available to ED staff and administrators of the receiving hospital in [facility]'s Patient Tracker. All data [facility] [address] [place] [address] EMS Patient Care Report Name: NINA PRATT Room #: REG LIDIA Peraza#: [id number] Admission: 02/16/21 Attend Phys: Discharge: Date of : 60 Report #: [id number] is provided "as is."
[2021-02-17 00:12] LABS: BASOPHILS 1.7 % (0.0-2.0); EOSINOPHILS 2.6 % (0.0-3.0); HEMATOCRIT 33.1 % (42.0-52.0); HEMOGLOBIN 10.2 gm/dL (14.0-18.0); LYMPHOCYTES 14.4 % (24.0-44.0); MCH 28.7 pg (26.0-34.0); MCHC 30.7 g/dL (28.0-37.0); MCV 93.6 fL (80.0-100.0); MONOCYTES 7.2 % (1.0-8.0); PLATELET COUNT 123 thou/uL (150-400); POLYS 74.1 % (36.0-66.0); RBC 3.54 mil/uL (4.50-6.00); RDW 18.1 % (10.5-14.5); WBC 8.1 thou/uL (4.0-11.0)
[2021-02-17 00:15] LABS: CREATININE 7.1 mg/dL (0.7-1.3)
[2021-02-17 00:26] LABS: ALBUMIN 2.8 g/dL (3.4-5.0); TOTAL BILIRUBIN 0.5 mg/dL (0.2-1.0); TOTAL PROTEIN 7.6 g/dL (6.4-8.2)
[2021-02-17] MEDS ORDERED: AZITHROMYCIN 2250 MG PO (01:31)
[2021-02-17 02:55] VITALS: BP 197/117
--- NOTE | 2021-02-17 08:51 | EKG ---
[address] [address] [place] [address] ELECTROCARDIOGRAM REPORT Name: NINA PRATT [facility] [id number] Admission: 02/16/21 Attend Phys: Discharge: 02/17/21 Date of : 60 Report #: [id number] [facility] ED Test Date: 2021-02-16 Test Time: 23:12:17 Pat Name: NINA PRATT Department: Room: Gender: Cloak Room Attendant: THADDEUS : 1960 Requested By: Travis Bynum Order Number: [id number] MD: Eduardo Dorsey Measurements Intervals [place] Rate: 69 P: 52 MA: 142 QRS: 53 QRSD: 67 T: QT: 435 QTc: 466 Interpretive Statements Sinus rhythm Poor R wave progression Nonspecific T wave abnormality Compared to ECG 02/08/2021 02:17:34 No significant change was found Electronically Signed On 02-17-2021 8:51:15 BIODIESEL ENGINE SPECIALIST by Eduardo Dorsey [email or web address] <ELECTRONICALLY SIGNED> By: Eduardo Dorsey MD, [facility] 02/17/21 0851 [id number] 2312 Eduardo Dorsey MD, FACC /EPI
== END 2021-02-17 02:56 | disposition home or self-care (01) ==
LOC: ER 22:30
PROVIDERS: Emergency Medicine
DX: I12.0 Hypertensive chronic kidney disease with stage 5 chronic kidney disease or end stage renal disease (principal); Z20.822 Contact with and (suspected) exposure to COVID-19; N18.6 End stage renal disease; J20.9 Acute bronchitis, unspecified; K21.9 Gastro-esophageal reflux disease without esophagitis; F32.9 Major depressive disorder, single episode, unspecified; F17.200 Nicotine dependence, unspecified, uncomplicated; F10.20 Alcohol dependence, uncomplicated; I42.9 Cardiomyopathy, unspecified; I25.10 Atherosclerotic heart disease of native coronary artery without angina pectoris; J44.9 Chronic obstructive pulmonary disease, unspecified; E78.5 Hyperlipidemia, unspecified; F17.210 Nicotine dependence, cigarettes, uncomplicated; Z98.890 Other specified postprocedural states; Z79.891 Long term (current) use of opiate analgesic; Z79.1 Long term (current) use of non-steroidal anti-inflammatories (NSAID); Z79.899 Other long term (current) drug therapy; Z88.0 Allergy status to penicillin

== ENCOUNTER 2021-03-21 07:53 | Emergency (ER) | payer OTHER ==
[~2021-03-21] VITALS: Ht 180.3 cm; Wt 73.9 kg
--- NOTE | ~2021-03-21 | EMS ---
[facility] [address] [place] [address] EMS Patient Care Report Name: NINA PRATT Room #: DEP LIDIA Peraza#: [id number] Admission: 03/21/21 Attend Phys: Discharge: 03/21/21 Date of : 60 Report #: [id number] THIS REPORT FOR: //name// Report Transmitted: 03/25/2021 07:21 EMS Care Summary [place], [place]/[facility] Incident [id number] @ 03/21/2021 07:11 Incident Location [address] [place] [address] Patient NINA PRATT Male, 61 Years 1960 Patient Address [address] [place] [address] [address] [place] [address] Patient History Cardiac Arrest,Congestive Heart Failure (CHF),Chronic Obstructive Pulmonary Disease (COPD),Dementia,Hypertension (HTN),ST Elevation (STEMI) Myocardial Infarction,Smoking,Stroke/CVA,Hyperlipidemia,Gastro-Esophageal Reflux Disease (GERD),End Stage Renal Disease (ESRD),Pneumonia,Depression,Anemia,Dialysis,Hyperkalemia,Chronic Kidney Disease,Respiratory Failure,Myocardial Infarction ([place]), Patient Allergies Penicillin allergy, Patient Medications Acetaminophen, Keflex, Polyethlene Glycol, Hydralazine, Gabapentin, Atorvastatin, Lisinopril, [place], Cholecalciferol, Voltaren, [place], Furosemide, Clopidogrel, Pantoprazole, Doxycycline, Hydrocodone, Levetiracetam, Tamsulosin, Amlodipine, Keppra, Ferrous Sulfate, Folic acid, Aspirin, Finasteride, Midodrine, Sertraline, Clonidine, Chief Complaint SOB Disposition Transported No Lights/[place] Dispatch Reason [facility] [address] [place] [address] EMS Patient Care Report Name: NINA PRATT Room #: DEP M.Sandrita.#: [id number] Admission: 03/21/21 Attend Phys: Discharge: 03/21/21 Date of : 60 Report #: [id number] Breathing Problem Transported To [facility] Narrative Called for SOB. Upon arrival, pt was scheduled for dialysis but staff was concerned about a possible new Covid status and he was SOB. He last dialyzed on the Sunday before. He was Covid negative on the Sunday, but there had been an outbreak in [place]. He was moved to the EMS cot and loaded into the ambulance w/o incident. Vitals obtained x 2. Attempt IV w/o success. Duo Neb given with O2. En route: cont to monitor vitals. RR to the ER. Vitals repeated. Arrived: pt taken to ER and moved to their bed w/o incident. Pt care & report to ER staff. Initial Vitals @07:33P: 87,SpO2: 99, @07:27P: 84,R: 18,BP: 165/129,Pain: 0/10,GCS: 15,CO: 0,SpO2: 100,Revised Trauma: 12, @07:35P: 83,R: 18,BP: 178/97,Pain: 0/10,GCS: 15,Glucose: 93,SpO2: 100,Revised Trauma: 12, @07:37P: 87,R: 18,BP: 169/103,Pain: 0/10,GCS: 15,SpO2: 98,Revised Trauma: 12,SC Suspected: false @07:23P: 87,R: 16,BP: 176/115,Pain: 0/10,GCS: 15,CO: 7,SpO2: 97,Revised Trauma: 12, @07:35P: 88,R: 16,BP: 176/100,Pain: 0/10,GCS: 15,CO: 0,SpO2: 100,Revised Trauma: 12, Assessments @07:18MENTAL:Event Oriented,Place Oriented,Person Oriented,Time Oriented,SKIN:HEENT:LUNG SOUNDS:ABDOMEN:PELVIS//GI:EXTREMITIES:Left Arm: Other,Right Arm: No Abnormalities,Left Leg: No Abnormalities,Right Leg: No Abnormalities,PULSE:Radial: 2+ Normal,NEURO:No Abnormalities, Impression Acute Respiratory Distress (Dyspnea) Procedures @07:56 IV Therapy - Saline Lock cc (18 ga) Site: Hand-Right Response: UnchangedFailed @07:56 IV Therapy - Saline Lock cc (18 ga) Site: Hand-Right Response: UnchangedFailed @07:18 ALS Assessment Response: UnchangedSucceeded @07:20 Stretcher Response: Unchanged @08:03 Albuterol - 2.5 Milligrams (mg) - Nebulized Response: Improved @08:04 Atrovent - 0.5 Milligrams (mg) - Nebulized Response: Improved [address] [address] EMS Patient Care Report Name: NINA PRATT Room #: DEP Karmen#: [id number] Admission: 03/21/21 Attend Phys: Discharge: 03/21/21 Date of : 60 Report #: [id number] @08:03 Albuterol - 2.5 Milligrams (mg) - Nebulized Response: Improved Timeline 07:10,Call Received 07:10,Dispatch Notified 07:11,Dispatched 07:11,En Route 07:16,On Scene 07:18,At Patient 07:18,ALS Assessment,Response: UnchangedSucceeded, 07:20,Stretcher,Response: Unchanged 07:23,BP: 176/115 M,PULSE: 87,RR: 16 R,SPO2: 97 Ox,ETCO2: ,BG: ,PAIN: 0,GCS: 15, 07:27,BP: 165/129 M,PULSE: 84,RR: 18 R,SPO2: 100 Ox,ETCO2: ,BG: ,PAIN: 0,GCS: 15, 07:33,BP: / M,PULSE: 87,RR: R,SPO2: 99 Ox,ETCO2: ,BG: ,PAIN: ,GCS: , 07:34,Depart Scene 07:35,BP: 176/100 M,PULSE: 88,RR: 16 R,SPO2: 100 Ox,ETCO2: ,BG: ,PAIN: 0,GCS: 15, 07:35,BP: 178/97 M,PULSE: 83,RR: 18 R,SPO2: 100 Ox,ETCO2: ,B,PAIN: 0,GCS: 15, 07:37,BP: 169/103 M,PULSE: 87,RR: 18 R,SPO2: 98 Ox,ETCO2: ,BG: ,PAIN: 0,GCS: 15, 07:42,At Destination 07:56,IV Therapy - Saline Lock cc 18 ga Site: Hand-Right,Response: UnchangedFailed, 07:56,IV Therapy - Saline Lock cc 18 ga Site: Hand-Right,Response: UnchangedFailed, 08:03,Albuterol - 2.5 Milligrams (mg) - Nebulized,Response: Improved 08:03,Albuterol - 2.5 Milligrams (mg) - Nebulized,Response: Improved 08:04,Atrovent - 0.5 Milligrams (mg) - Nebulized,Response: Improved 08:06,Call Closed Disclaimer v1.1 Copyright 2021 [employer] This EMS Care Summary contains data elements from the applicable legal record (which may be displayed differently). It is designed to provide pertinent information for the following purposes: continuity of care, clinical quality, and state data reporting. The complete legal record is available to ED staff and administrators of the receiving hospital in [employer]'s Patient Tracker. All data is provided "as is."
--- NOTE | ~2021-03-21 | EMS ---
[facility] [address] [place] [address] EMS Patient Care Report Name: NINA PRATT Room #: DEP LIDIA Peraza#: [id number] Admission: 03/21/21 Attend Phys: Discharge: 03/21/21 Date of : 60 Report #: [id number] THIS REPORT FOR: //name// Report Transmitted: 03/25/2021 08:24 EMS Care Summary [place], [place]/[facility] Incident [id number] @ 03/21/2021 07:11 Incident Location [address] [place] [address] Patient NINA PRATT Male, 61 Years 1960 Patient Address [address] [place] [address] [address] [place] [address] Patient History Cardiac Arrest,Congestive Heart Failure (CHF),Chronic Obstructive Pulmonary Disease (COPD),Dementia,Hypertension (HTN),ST Elevation (STEMI) Myocardial Infarction,Smoking,Stroke/CVA,Hyperlipidemia,Gastro-Esophageal Reflux Disease (GERD),End Stage Renal Disease (ESRD),Pneumonia,Depression,Anemia,Dialysis,Hyperkalemia,Chronic Kidney Disease,Respiratory Failure,Myocardial Infarction ([place]), Patient Allergies Penicillin allergy, Patient Medications Acetaminophen, Keflex, Polyethlene Glycol, Hydralazine, Gabapentin, Atorvastatin, Lisinopril, Carvedmtol, Cholecalciferol, Voltaren, [place], Furosemide, Clopidogrel, Pantoprazole, Doxycycline, Hydrocodone, Levetiracetam, Tamsulosin, Amlodipine, Keppra, Ferrous Sulfate, Folic acid, Aspirin, Finasteride, Midodrine, Sertraline, Clonidine, Chief Complaint SOB Disposition Transported No Lights/[place] Dispatch Reason [facility] [address] [place] [address] EMS Patient Care Report Name: NINA PRATT Room #: DEP M.Sandrita.#: [id number] Admission: 03/21/21 Attend Phys: Discharge: 03/21/21 Date of : 60 Report #: [id number] Breathing Problem Transported To [facility] Narrative Called for SOB. Upon arrival, pt was scheduled for dialysis but staff was concerned about a possible new Covid status and he was SOB. He last dialyzed on the Sunday before. He was Covid negative on the Sunday, but there had been an outbreak [place] the [place]. He was moved to the EMS cot and loaded into the ambulance w/o incident. Vitals obtained x 2. Attempt IV w/o success. Duo Neb given with O2. En route: cont to monitor vitals. RR to the ER. Vitals repeated. Arrived: pt taken to ER and moved to their bed w/o incident. Pt care & report to ER staff. Initial Vitals @07:33P: 87,SpO2: 99, @07:27P: 84,R: 18,BP: 165/129,Pain: 0/10,GCS: 15,CO: 0,SpO2: 100,Revised Trauma: 12, @07:35P: 83,R: 18,BP: 178/97,Pain: 0/10,GCS: 15,Glucose: 93,SpO2: 100,Revised Trauma: 12, @07:37P: 87,R: 18,BP: 169/103,Pain: 0/10,GCS: 15,SpO2: 98,Revised Trauma: 12,[place] Suspected: false @07:23P: 87,R: 16,BP: 176/115,Pain: 0/10,GCS: 15,CO: 7,SpO2: 97,Revised Trauma: 12, @07:35P: 88,R: 16,BP: 176/100,Pain: 0/10,GCS: 15,CO: 0,SpO2: 100,Revised Trauma: 12, Assessments @07:18MENTAL:Event Oriented,Place Oriented,Person Oriented,Time Oriented,SKIN:HEENT:LUNG SOUNDS:ABDOMEN:PELVIS//GI:EXTREMITIES:Left Arm: Other,Right Arm: No Abnormalities,Left Leg: No Abnormalities,Right Leg: No Abnormalities,PULSE:Radial: 2+ Normal,NEURO:No Abnormalities, Impression Acute Respiratory Distress (Dyspnea) Procedures @07:56 IV Therapy - Saline Lock cc (18 ga) Site: Hand-Right Response: UnchangedFailed @07:56 IV Therapy - Saline Lock cc (18 ga) Site: Hand-Right Response: UnchangedFailed @07:18 ALS Assessment Response: UnchangedSucceeded @07:20 Stretcher Response: Unchanged @08:03 Albuterol - 2.5 Milligrams (mg) - Nebulized Response: Improved @08:04 Atrovent - 0.5 Milligrams (mg) - Nebulized Response: Improved [address] [address] EMS Patient Care Report Name: NINA PRATT Room #: DEP LIDIA Peraza#: [id number] Admission: 03/21/21 Attend Phys: Discharge: 03/21/21 Date of : 60 Report #: [id number] @08:03 Albuterol - 2.5 Milligrams (mg) - Nebulized Response: Improved Timeline 07:10,Call Received 07:10,Dispatch Notified 07:11,Dispatched 07:11,En Route 07:16,On Scene 07:18,At Patient 07:18,ALS Assessment,Response: UnchangedSucceeded, 07:20,Stretcher,Response: Unchanged 07:23,BP: 176/115 M,PULSE: 87,RR: 16 R,SPO2: 97 Ox,ETCO2: ,BG: ,PAIN: 0,GCS: 15, 07:27,BP: 165/129 M,PULSE: 84,RR: 18 R,SPO2: 100 Ox,ETCO2: ,BG: ,PAIN: 0,GCS: 15, 07:33,BP: / M,PULSE: 87,RR: R,SPO2: 99 Ox,ETCO2: ,BG: ,PAIN: ,GCS: , 07:34,Depart Scene 07:35,BP: 176/100 M,PULSE: 88,RR: 16 R,SPO2: 100 Ox,ETCO2: ,BG: ,PAIN: 0,GCS: 15, 07:35,BP: 178/97 M,PULSE: 83,RR: 18 R,SPO2: 100 Ox,ETCO2: ,B,PAIN: 0,GCS: 15, 07:37,BP: 169/103 M,PULSE: 87,RR: 18 R,SPO2: 98 Ox,ETCO2: ,BG: ,PAIN: 0,GCS: 15, 07:42,At Destination 07:56,IV Therapy - Saline Lock cc 18 ga Site: Hand-Right,Response: UnchangedFailed, 07:56,IV Therapy - Saline Lock cc 18 ga Site: Hand-Right,Response: UnchangedFailed, 08:03,Albuterol - 2.5 Milligrams (mg) - Nebulized,Response: Improved 08:03,Albuterol - 2.5 Milligrams (mg) - Nebulized,Response: Improved 08:04,Atrovent - 0.5 Milligrams (mg) - Nebulized,Response: Improved 08:06,Call Closed Disclaimer v1.1 Copyright 2021 [employer] This EMS Care Summary contains data elements from the applicable legal record (which may be displayed differently). It is designed to provide pertinent information for the following purposes: continuity of care, clinical quality, and state data reporting. The complete legal record is available to ED staff and administrators of the receiving hospital in [employer]'s Patient Tracker. All data is provided "as is."
[~2021-03-21 07:53] MED LIST changes: +AZITHROMYCIN 2250 MG PO
[2021-03-21 09:16] LABS: ABSOLUTE NEUTROPHILS 7.5 thou/uL (1.4-8.2); BASOPHILS 1.2 % (0.0-2.0); EOSINOPHILS 2.8 % (0.0-3.0); HEMATOCRIT 29.3 % (42.0-52.0); LYMPHOCYTES 9.3 % (24.0-44.0); MCH 27.4 pg (26.0-34.0); MCHC 30.6 g/dL (28.0-37.0); MCV 89.7 fL (80.0-100.0); MONOCYTES 5.3 % (1.0-8.0); PLATELET COUNT 202 thou/uL (150-400); POLYS 81.4 % (36.0-66.0); RBC 3.27 mil/uL (4.50-6.00); RDW 17.7 % (10.5-14.5); WBC 9.2 thou/uL (4.0-11.0)
[2021-03-21 11:25] LABS: ALBUMIN 2.9 g/dL (3.4-5.0); CALCIUM 9.3 mg/dL (8.5-10.1); CREATININE 8.6 mg/dL (0.7-1.3); POTASSIUM 5.9 mmol/L (3.5-5.1); TOTAL BILIRUBIN 0.4 mg/dL (0.2-1.0); TOTAL PROTEIN 8.1 g/dL (6.4-8.2)
--- NOTE | 2021-03-21 16:12 | EKG ---
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 : 1960 Requested By: Juanjose Mendenhall Order Number: [id number] MD: Marlon Bardales Measurements Intervals [place] Rate: 78 P: 60 [place]: 145 QRS: 40 QRSD: 71 T: 99 QT: 382 QTc: 436 Interpretive Statements Sinus rhythm Probable left atrial enlargement Probable LVH with secondary repol abnrm Anterior Q waves, possibly due to LVH Compared to ECG 02/16/2021 23:12:17 Left ventricular hypertrophy now present Q waves now present Poor R-wave progression no longer present T-wave abnormality no longer present Electronically Signed On 03-21-2021 16:12:08 CAFE OPERATOR by Marlon Bardales [email or web address] <ELECTRONICALLY SIGNED> By: Marlon Bardales MD, [facility] 03/21/21 1612 [id number] 0907 Marlon Bardales MD, [facility] /EPI
[2021-03-21 16:49] VITALS: BP 150/98
== END 2021-03-21 16:50 | disposition home or self-care (01) ==
LOC: ER 07:53
PROVIDERS: Student in an Organized Health Care Education/Training Program
DX: I12.0 Hypertensive chronic kidney disease with stage 5 chronic kidney disease or end stage renal disease (principal); Z20.822 Contact with and (suspected) exposure to COVID-19; N18.6 End stage renal disease; R06.02 Shortness of breath; E78.5 Hyperlipidemia, unspecified; J44.9 Chronic obstructive pulmonary disease, unspecified; I25.10 Atherosclerotic heart disease of native coronary artery without angina pectoris; K21.9 Gastro-esophageal reflux disease without esophagitis; Z98.890 Other specified postprocedural states; Z99.2 Dependence on renal dialysis; Z91.15 Patient's noncompliance with renal dialysis; Z79.891 Long term (current) use of opiate analgesic; Z79.1 Long term (current) use of non-steroidal anti-inflammatories (NSAID); Z79.899 Other long term (current) drug therapy; Z88.0 Allergy status to penicillin